=== PATIENT | male | born 1970 | race Two or more races ===

== ENCOUNTER 2017-08-10 11:12 | Inpatient (IN) | payer MEDICAID ==
[~2017-08-10] VITALS: Ht 177.8 cm; Wt 54.4 kg
--- NOTE | 2017-08-10 11:28 | NUR ---
EDA FROM [facility] DISLODGED J- TUBE. J-TUBE STILL NOTED IN THE STOMA-HOWEVER NOT SECURED. NO BLEEDING NOTED. PATIENT'S VSS
[2017-08-10] MEDS ORDERED: CHLO473M5 MM (12:00)
[2017-08-10] MEDS ORDERED: DOCU50LI GT (12:00)
[2017-08-10] MEDS ORDERED: FAMO20TA8 GT (12:00)
[2017-08-10] MEDS ORDERED: ACET650S26 GT ×2 (12:00)
[2017-08-10] MEDS ORDERED: IPRA3AMP IH ×2 (12:00)
[2017-08-10] MEDS ORDERED: HEPARIN SQ (12:00)
[2017-08-10] MEDS ORDERED: ACET-2605 GT (12:00)
[2017-08-10] MEDS ORDERED: HYDR-552 GT (12:00)
[2017-08-10] MEDS ORDERED: ACID1TAB12 GT (12:00)
[2017-08-10] MEDS ORDERED: LACT-96 GT (12:00)
[2017-08-10] MEDS ORDERED: MAGN400O6 GT (12:04)
[2017-08-10] MEDS ORDERED: NA P133E RC (12:04)
[2017-08-10] MEDS ORDERED: BISA10SU8 RC (12:04)
--- NOTE | 2017-08-10 12:16 | NUR ---
TRISTON PAGED, FLEET OPERATIONS MANAGER, TRANSFERRED CALL TO
[2017-08-10 12:22] LABS: BASOPHILS % (AUTO) 0.2 % (0.0-2.0); EOSINOPHILS # (AUTO) 0.4 /CMM (0.0-0.7); EOSINOPHILS % (AUTO) 3.1 % (0.0-6.0); HEMATOCRIT 42 % (39-51); HEMOGLOBIN 14.5 g/dL (13.5-17.5); LYMPHOCYTES # (AUTO) 1.7 /CMM (0.8-4.8); LYMPHOCYTES % (AUTO) 12.1 % (20.0-44.0); MEAN CORPUSCULAR HEMOGLOBIN 30 PG (26.0-33.0); MEAN CORPUSCULAR HGB CONC 34 g/dl (31.0-36.0); MEAN CORPUSCULAR VOLUME 88 fL (80-96); MONOCYTES # (AUTO) 0.7 /CMM (0.1-1.30); MONOCYTES % (AUTO) 5.3 % (2.0-12.0); NEUTROPHILS % (AUTO) 79.3 % (43.0-81.0); PLATELET COUNT (AUTO) 197 /CMM (150-450); RDW COEFFICIENT OF VARIATION 13.8 (11.5-15.0); RED BLOOD CELL COUNT(AUTO) 4.83 MIL/uL (4.5-6.0); WHITE BLOOD COUNT (AUTO) 13.8 K/uL (4.3-11.0)
[2017-08-10] MEDS ORDERED: Z GUARD REMEDY 2 OZ OINT TP PRN (12:30)
--- NOTE | 2017-08-10 12:32 | NUR ---
MS 311-2, LILIANA
[2017-08-10 12:41] LABS: INR 1.04 (0.87-1.13)
[2017-08-10 12:47] LABS: CALCIUM, SERUM 10.2 mg/dL (8.5-10.1); CREATININE 0.8 mg/dL (0.6-1.3); POTASSIUM 4.2 mmol/L (3.5-5.1)
--- NOTE | 2017-08-10 12:51 | NUR ---
PATIENT TRANSPORTED TO [facility]. S
--- NOTE | 2017-08-10 14:00 | NUR ---
ms rn received a 46 year ol male, non verbal w/ trach connected to aerosol, saturating 99%, came in w/ dx of jt malfunction, no distress noted, will be seen by surgical doctor lul.
[2017-08-10] MEDS ORDERED: HYDROCODONE/APAP 5/325MG 1 EACH TABLET GT PRN (15:00)
[2017-08-10] MEDS ORDERED: BISACODYL SUPP (10 MG) 10 MG/SUPP.RECT SUPP.RECT RC PRN (15:00)
[2017-08-10] MEDS ORDERED: ACETAMINOPHEN 650 MG/20.3 ML UDC GT PRN (15:00)
[2017-08-10] MEDS ORDERED: MAGNESIUM HYDROXIDE 30 ML UDC GT PRN (15:00)
[2017-08-10] MEDS ORDERED: NA PHOS,M-B/NA PHOS,DI-BA 1 EA ENEMA RC PRN (15:00)
[2017-08-10] MEDS ORDERED: FIBERSOURCE HN 1,000 ML BOTTLE GT PRN (15:00)
--- NOTE | 2017-08-10 15:00 | NUR ---
ms rn was seen by dr. dottie shay/ orders made and carried out.
[2017-08-10] MEDS ORDERED: FEE PK DOSING 1 MIN EA MC ONE (15:34)
[2017-08-10] MEDS ORDERED: IPRATROPIUM NEB FS 0.5 MG/2.5 ML AMPUL.NEB NEB PRN (16:30)
[2017-08-10] MEDS: DOCUSATE SODIUM LIQ 100 MG/10 ML UDC GT SCH (17:00)
[2017-08-10] MEDS: ACETAMINOPHEN 650 MG/20.3 ML UDC GT SCH (17:00)
[2017-08-10] MEDS: FAMOTIDINE (20 MG) 20 MG TABLET GT SCH (17:00)
--- NOTE | 2017-08-10 17:30 | NUR ---
PT RECEIVED TRACHED ON COOL AEROSOL, IN STABLE CONDITION. V/S WITHIN NORMAL LIMITS WILL MONITOR CLOSELY
--- NOTE | 2017-08-10 18:00 | NUR ---
ms rn called rx to send atv iv, they will put in the dummy.
[2017-08-10] MEDS: PIPERACILLIN /TAZOBACTAM 3.375 G in IV D5W 50 ML IV SCH ×2 (18:12→23:33)
--- NOTE | 2017-08-10 18:45 | NUR ---
ms rn parker quiroz saw patient w/ orders made and carried out, will have kub w/ gastrografine tonight.
[2017-08-10] MEDS: VANCOMYCIN 0.75 GM in IV D5W 250 ML IV SCH (19:29)
[2017-08-10] MEDS ORDERED: ALBUTEROL FS 2.5 MG/3 ML VIAL.NEB NEB PRN (19:30)
--- NOTE | 2017-08-10 19:30 | NUR ---
RN OPENING NOTES PATIENT IS IN BED, NON VERBAL, WITH TRACH CONNECTED TO AEROSOL. VS STABLE. RESPIRATIONS EVEN AND UNLABORED. NO SOB NOTED. NO PAIN OR DISCOMFORT NOTED AT THIS TIME. IV ACCESS ON RIGHT HAND 20 G PATENT AND INTACT, INFUSING D5 1/2 NS AT 75 ML/HR. BED IN LOW AND LOCKED POSITION, SIDE RAILS X2. CALL LIGHT WITHIN EASY REACH. WILL CONTINUE TO MONITOR AND ASSESS DURING THE SHIFT.
[2017-08-10 20:00] VITALS: BP 92/68
[2017-08-10] MEDS: IPRATROPIUM NEB FS 0.5 MG/2.5 ML AMPUL.NEB NEB SCH (20:02)
[2017-08-10] MEDS: ALBUTEROL FS 2.5 MG/3 ML VIAL.NEB NEB SCH (20:02)
[2017-08-10] MEDS ORDERED: DIATR MEGLU/DIATRIZOATE SODIUM 30 ML BOTTLE (GASTROGRAPHIN) ONE (21:05)
[2017-08-10] MEDS: CHLORHEXIDINE GLUCONATE 15 ML UDC MM SCH (22:13)
[2017-08-10] MEDS: HEPARIN SODIUM, PORCINE 5000 UNITS/1 ML VIAL SQ SCH (22:14)
[2017-08-11] MEDS: VANCOMYCIN 0.75 GM in IV D5W 250 ML IV SCH ×3 (00:20→16:00)
[2017-08-11] MEDS: ALBUTEROL FS 2.5 MG/3 ML VIAL.NEB NEB SCH ×4 (01:31→21:00)
[2017-08-11] MEDS: IPRATROPIUM NEB FS 0.5 MG/2.5 ML AMPUL.NEB NEB SCH ×4 (01:31→21:00)
[2017-08-11] MEDS: PIPERACILLIN /TAZOBACTAM 3.375 G in IV D5W 50 ML IV SCH ×3 (05:19→17:08)
[2017-08-11 07:00] LABS: BASOPHILS % (AUTO) 0.3 % (0.0-2.0); EOSINOPHILS # (AUTO) 0.2 /CMM (0.0-0.7); EOSINOPHILS % (AUTO) 1.8 % (0.0-6.0); HEMATOCRIT 42 % (39-51); HEMOGLOBIN 14.6 g/dL (13.5-17.5); LYMPHOCYTES # (AUTO) 1.5 /CMM (0.8-4.8); LYMPHOCYTES % (AUTO) 11.3 % (20.0-44.0); MEAN CORPUSCULAR HEMOGLOBIN 31 PG (26.0-33.0); MEAN CORPUSCULAR HGB CONC 35 g/dl (31.0-36.0); MEAN CORPUSCULAR VOLUME 88 fL (80-96); MONOCYTES # (AUTO) 0.8 /CMM (0.1-1.30); MONOCYTES % (AUTO) 6.2 % (2.0-12.0); NEUTROPHILS # (AUTO) 10.6 /CMM (1.8-8.9); NEUTROPHILS % (AUTO) 80.4 % (43.0-81.0); PLATELET COUNT (AUTO) 174 /CMM (150-450); RDW COEFFICIENT OF VARIATION 13.3 (11.5-15.0); RED BLOOD CELL COUNT(AUTO) 4.75 MIL/uL (4.5-6.0); WHITE BLOOD COUNT (AUTO) 13.2 K/uL (4.3-11.0)
--- NOTE | 2017-08-11 07:12 | NUR ---
MS RN OPENING NOTES RECEIVED PT FROM NIGHTSHIFT NURSE IN STABLE CONDITION. PT IS NONVERBAL AND OPENS EYES SPONTANEOUSLY. NO SOB OR SIGNS OF DISTRESS NOTED. BREATHING IS EVEN AND UNLABORED. PT IS TRACH DEPENDENT ON COOL AEROSOL. IV NOTED TO BE PATENT AND INTACT. NO REDNESS OR SIGNS OF INFILTRATION NOTED. JTUBE PLACEMENT VERIFIED BY ABDOMINAL XRAY. WILL ALERT MD TO BEGIN FEEDING AND MEDICATION ADMINISTRATION. BED IN LOW LOCKED POSITION, SIDE RAILS UP X3, CALL LIGHT WITHIN REACH, BED ALARM ON. WILL CONTINUE TO MONITOR
--- NOTE | 2017-08-11 07:30 | NUR ---
RN CLOSING NOTES PATIENT IS IN BED, NON VERBAL, WITH TRACH CONNECTED TO AEROSOL. VS STABLE. RESPIRATIONS EVEN AND UNLABORED. NO SOB NOTED. NO PAIN OR DISCOMFORT NOTED AT THIS TIME. IV ACCESS ON RIGHT HAND 20 G PATENT AND INTACT, INFUSING D5 1/2 NS AT 75 ML/HR. ALL MEDS ARE DONE AND MEDICATIONS GIVEN PER MD ORDER. BED IN LOW AND LOCKED POSITION, SIDE RAILS X2. CALL LIGHT WITHIN EASY REACH. WILL ENDORSE TO RN DAY SHIFT FOR ERICA.
[2017-08-11 08:00] VITALS: BP 111/70
[2017-08-11] MEDS: HEPARIN SODIUM, PORCINE 5000 UNITS/1 ML VIAL SQ SCH ×2 (09:00→20:53)
--- NOTE | 2017-08-11 09:04 | NUR ---
MS RN NOTES ADRIANO THE ROAD GRADER OPERATOR WAS NOTIFIED OF ABDOMINAL XRAY RESULTS. SHE GAVE ORDERS TO RESUME MEDS [employer] and ORDER DIETARY CONSULT. WILL CARRY OUT ORDERS
[2017-08-11] MEDS: ACETAMINOPHEN 650 MG/20.3 ML UDC GT SCH ×2 (09:53→17:08)
[2017-08-11] MEDS: CHLORHEXIDINE GLUCONATE 15 ML UDC MM SCH ×2 (09:53→20:52)
[2017-08-11] MEDS: DOCUSATE SODIUM LIQ 100 MG/10 ML UDC GT SCH ×2 (09:53→17:08)
[2017-08-11] MEDS: ACIDOPHILUS/BULGARICUS 1 EACH TAB.CHEW GT SCH (09:54)
[2017-08-11] MEDS: FAMOTIDINE (20 MG) 20 MG TABLET GT SCH ×2 (09:54→17:09)
[2017-08-11 10:28] LABS: CALCIUM, SERUM 10.1 mg/dL (8.5-10.1); CREATININE 0.8 mg/dL (0.6-1.3); MAGNESIUM 2.1 mg/dL (1.8-2.4); PHOSPHORUS 5.3 mg/dL (2.5-4.9); POTASSIUM 4.5 mmol/L (3.5-5.1)
--- NOTE | 2017-08-11 10:40 | NUR ---
MS RN NOTES 0900 HEPARIN HELD PER ADRIANO'S (MECHANICAL SYSTEM TECHNICIAN) ORDER PT'S JTUBE WILL BE SUTURED IN PLACE LATER TODAY
--- NOTE | 2017-08-11 13:53 | NUR ---
MS RN NOTES PTS FATHER WAS CALLED IN REGARDS TO CONSENT FOR PEG PLACEMENT. TELEPHONE CONSENT WAS PROVIDED/APPROVED AND VERIFIED WITH CHARGE NURSE.
[2017-08-11 16:00] VITALS: BP 114/71
--- NOTE | 2017-08-11 16:57 | NUR ---
MS RN NOTES PT'S VANCO IS 22. PHARMACY NOTIFIED AND ORDERED THAT I HOLD 1600 VANCO.
--- NOTE | 2017-08-11 18:05 | NUR ---
MS RN CLOSING NOTES PT REMAINS IN STABLE CONDITION. ALL NEEDS WERE MET DURING SHIFT AND ORDERS CARRIED OUT ACCORDINGLY. ALL DUE MEDS GIVEN. PT WAS KEPT CLEAN AND DRY THROUGHOUT SHIFT. REPOSITIONING DONE PER PROTOCOL. JTUBE REMAIN IN PLACE AND PATENT. SAFETY MEASURES REMAIN IN PLACE. WILL ENDORSE TO NIGHTSHIFT NURSE FOR ERICA
--- NOTE | 2017-08-11 19:30 | NUR ---
MS RN OPENING NOTES RECEIVED PT IN BED, NONVERBAL, EYES OPEN, NO APPARENT DISTRESS NOTED. ON COOL AEROSOL, TRACH PATENT, RESPIRATIONS EVEN, UNLABORED, NO SOB NOTED. IV SITE RT WRIST, INTACT, PATENT.NO S/SX OF PAIN OR DISCOMFORT NOTED. BED LOCKED IN LOWEST POSITION. KEPT CLEAN AND COMFORTABLE, ATTENDED ALL NEEDS. WILL CONTINUE TO MONITOR ACCORDINGLY.
[2017-08-11 20:00] VITALS: BP 93/59
--- NOTE | 2017-08-11 20:00 | NUR ---
MS RN NOTES CALLED PHARMACY, SPOKE WITH PHARMACIST SEELA REGARDING ADMINISTRATION OF VANCOMYCIN. STATED THAT IS OK TO ADMINISTER THE DOSE 0.75G ORDER CHANGED TO Q12H AND CONTINUE TO MONITOR PT.
[2017-08-11] MEDS: VANCOMYCIN 0.75 GM in IV NS 0.9% 250 ML IV SCH (20:52)
[2017-08-11 22:00] VITALS: BP 112/60
[2017-08-12] MEDS: PIPERACILLIN /TAZOBACTAM 3.375 G in IV D5W 50 ML IV SCH ×3 (00:08→11:06)
[2017-08-12] MEDS: IV D5/0.45 NACL 1,000 ML IV PRN ×2 (00:09→17:06)
[2017-08-12] MEDS: IPRATROPIUM NEB FS 0.5 MG/2.5 ML AMPUL.NEB NEB SCH ×4 (01:28→19:19)
[2017-08-12] MEDS: ALBUTEROL FS 2.5 MG/3 ML VIAL.NEB NEB SCH ×4 (01:28→19:19)
--- NOTE | 2017-08-12 06:51 | NUR ---
MS RN CLOSING NOTES PT IN BED, ON COOL AEROSOL, RESPIRATIONS EVEN, UNLABORED. TRACH PATENT, NO RESP DISTRESS NOTED.NO S/SX OF PAIN OR DISCOMFORT NOTED. KEPT CLEAN AND COMFORTABLE, BED LOCKED IN LOWEST POSITION. ATTENDED ALL NEEDS WILL CONTINUE TO MONITOR ACCORDINGLY.
--- NOTE | 2017-08-12 07:10 | NUR ---
RN NOTES PT IS LAYING DOWN IN BED, AWAKE. PT ON 8L VIA TRACH, RESPIRATIONS ARE EVEN AND UNLABORED. IV ON R WRIST, INTACT AND RUNNING D51/2 NS @ 75 ML/HR. GTBUE IS INTACT AND CLAMPED. SAFETY MEASURES ARE IN PLACE, CALL LIGHT IS IN REACH. WILL CONTINUE TO MONITOR.
[2017-08-12 07:31] LABS: CALCIUM, SERUM 9.6 mg/dL (8.5-10.1); CREATININE 0.8 mg/dL (0.6-1.3); POTASSIUM 3.8 mmol/L (3.5-5.1)
[2017-08-12] MEDS: VANCOMYCIN 0.75 GM in IV NS 0.9% 250 ML IV SCH ×2 (07:51→20:04)
[2017-08-12 08:00] VITALS: BP 99/69
[2017-08-12] MEDS: ACETAMINOPHEN 650 MG/20.3 ML UDC GT SCH ×2 (08:12→16:02)
[2017-08-12] MEDS: DOCUSATE SODIUM LIQ 100 MG/10 ML UDC GT SCH ×2 (08:12→16:02)
[2017-08-12] MEDS: CHLORHEXIDINE GLUCONATE 15 ML UDC MM SCH ×2 (08:12→21:48)
[2017-08-12] MEDS: FAMOTIDINE (20 MG) 20 MG TABLET GT SCH ×2 (08:12→16:02)
[2017-08-12] MEDS: ACIDOPHILUS/BULGARICUS 1 EACH TAB.CHEW GT SCH (08:12)
[2017-08-12] MEDS: HEPARIN SODIUM, PORCINE 5000 UNITS/1 ML VIAL SQ SCH ×2 (08:13→21:49)
[2017-08-12 09:34] LABS: BASOPHILS % (AUTO) 0.3 % (0.0-2.0); EOSINOPHILS # (AUTO) 0.4 /CMM (0.0-0.7); HEMATOCRIT 41 % (39-51); LYMPHOCYTES # (AUTO) 1.5 /CMM (0.8-4.8); LYMPHOCYTES % (AUTO) 17.1 % (20.0-44.0); MEAN CORPUSCULAR HEMOGLOBIN 30 PG (26.0-33.0); MEAN CORPUSCULAR HGB CONC 35 g/dl (31.0-36.0); MEAN CORPUSCULAR VOLUME 88 fL (80-96); MONOCYTES # (AUTO) 0.5 /CMM (0.1-1.30); MONOCYTES % (AUTO) 5.5 % (2.0-12.0); NEUTROPHILS # (AUTO) 6.3 /CMM (1.8-8.9); NEUTROPHILS % (AUTO) 72.1 % (43.0-81.0); PLATELET COUNT (AUTO) 186 /CMM (150-450); RDW COEFFICIENT OF VARIATION 13.9 (11.5-15.0); RED BLOOD CELL COUNT(AUTO) 4.61 MIL/uL (4.5-6.0); WHITE BLOOD COUNT (AUTO) 8.8 K/uL (4.3-11.0)
[2017-08-12 16:00] VITALS: BP 93/62
[2017-08-12] MEDS ORDERED: FIBERSOURCE HN 1,000 ML BOTTLE GT PRN (17:30)
--- NOTE | 2017-08-12 18:42 | NUR ---
RN NOTES PT IS LAYING DOWN IN BED, NO SIGS OF DISTRESS NOTED. PT IS NON VERBAL, OPENS EYES TO NAME AND TOUCH. PT CONNECTED TO 8L O2 COOL AEROSOL, RESPIRATIONS ARE EVEN AND UNLABORED. IV ON R WRIST INTACT AND RUNNING D5 1/2 NS @ 75ML/HR. ALL MEDS WERE GIVEN ORDERED AND SKIN CARE PROVIDED FOR PT. G-TUBE IS INTACT AND CLAMPED. SAFETY MEASURES ARE IN PLACE, CALL LIGHT IS IN REACH. WILL ENDORSE TO MARKETING PROFESSIONAL RN FOR CONTINUITY OF CARE.
--- NOTE | 2017-08-12 19:39 | NUR ---
MS RN OPENING NOTES RECEIVED PT IN BED AWAKE, ON COOL AEROSOL FIO2 35%, RESPIRATIONS EVEN, UNLABORED, NO APPARENT DISTRESS NOTED. TRACH PATENT, NO SOB NOTED. JT IN PLACE. IV SITE RT WRIST INTACT, PATENT. NO S/SX OF PAIN OR DISCOMFORT NOTED. KEPT CLEAN AND COMFORTABLE, ATTENDED ALL NEEDS.WILL CONTINUE TO MONITOR ACCORDINGLY.
[2017-08-12 20:00] VITALS: BP 111/69
[2017-08-12] MEDS: AMOX/CLAVULANATE 875 MG TABLET GT SCH (21:48)
[2017-08-12 22:00] VITALS: BP 111/68
[2017-08-13] MEDS: IPRATROPIUM NEB FS 0.5 MG/2.5 ML AMPUL.NEB NEB SCH ×3 (01:23→13:44)
[2017-08-13] MEDS: ALBUTEROL FS 2.5 MG/3 ML VIAL.NEB NEB SCH ×3 (01:23→13:44)
--- NOTE | 2017-08-13 06:40 | NUR ---
MS RN CLOSING NOTES PT IN BED RESTING COMFORTABLY, TRACH PATENT, NO RESP DISTRESS NOTED. JT IN PLACE 3ML RESIDUAL NOTED, TOLERATES FEEDING WELL FIBERSOURCE AT 65ML/HR. IV SITE INTACT, PATENT. TRACH CARE DONE. KEPT CLEAN AND COMFORTABLE, ATTENDED ALL NEEDS.WILL ENDORSE TO THE DAY SHIFT FOR CONTINUITY OF CARE
--- NOTE | 2017-08-13 07:10 | NUR ---
RN NOTES PT IS LAYING DOWN IN BED, AWAKE. PT ON 8L O2 CONNECTED BY TRACH, RESPIRATIONS ARE EVEN AND UNLABORED. IV ON R WRIST, INTACT AND RUNNING D5 1/2 NS @ 75ML/HR. G-TUBE IS INTACT AND RUNNING FIBERSOURCE @ 65ML/HR. SAFETY MEASURES ARE IN PLACE, CALL LIGHT IS IN REACH. WILL CONTINUE TO MONITOR.
[2017-08-13 07:12] LABS: BASOPHILS % (AUTO) 0.2 % (0.0-2.0); EOSINOPHILS # (AUTO) 0.4 /CMM (0.0-0.7); EOSINOPHILS % (AUTO) 4.3 % (0.0-6.0); HEMATOCRIT 39 % (39-51); HEMOGLOBIN 13.6 g/dL (13.5-17.5); LYMPHOCYTES # (AUTO) 1.4 /CMM (0.8-4.8); LYMPHOCYTES % (AUTO) 15.4 % (20.0-44.0); MEAN CORPUSCULAR HEMOGLOBIN 31 PG (26.0-33.0); MEAN CORPUSCULAR HGB CONC 35 g/dl (31.0-36.0); MEAN CORPUSCULAR VOLUME 88 fL (80-96); MONOCYTES # (AUTO) 0.5 /CMM (0.1-1.30); NEUTROPHILS # (AUTO) 6.8 /CMM (1.8-8.9); NEUTROPHILS % (AUTO) 75.1 % (43.0-81.0); PLATELET COUNT (AUTO) 188 /CMM (150-450); RDW COEFFICIENT OF VARIATION 13.7 (11.5-15.0); RED BLOOD CELL COUNT(AUTO) 4.44 MIL/uL (4.5-6.0)
[2017-08-13 07:26] LABS: CALCIUM, SERUM 9.1 mg/dL (8.5-10.1); CREATININE 0.6 mg/dL (0.6-1.3); POTASSIUM 3.7 mmol/L (3.5-5.1)
[2017-08-13 08:00] VITALS: BP 109/67
[2017-08-13] MEDS: DOCUSATE SODIUM LIQ 100 MG/10 ML UDC GT SCH ×2 (08:14→16:12)
[2017-08-13] MEDS: FAMOTIDINE (20 MG) 20 MG TABLET GT SCH ×2 (08:14→16:12)
[2017-08-13] MEDS: ACIDOPHILUS/BULGARICUS 1 EACH TAB.CHEW GT SCH (08:14)
[2017-08-13] MEDS: AMOX/CLAVULANATE 875 MG TABLET GT SCH (08:14)
[2017-08-13] MEDS: VANCOMYCIN 0.75 GM in IV NS 0.9% 250 ML IV SCH (08:14)
[2017-08-13] MEDS: CHLORHEXIDINE GLUCONATE 15 ML UDC MM SCH (08:14)
[2017-08-13] MEDS: ACETAMINOPHEN 650 MG/20.3 ML UDC GT SCH ×2 (08:16→16:12)
[2017-08-13] MEDS: HEPARIN SODIUM, PORCINE 5000 UNITS/1 ML VIAL SQ SCH (08:20)
[2017-08-13] MEDS ORDERED: Amox/Clavulanate GT (15:03)
[2017-08-13 16:00] VITALS: BP 101/73
--- NOTE | 2017-08-13 18:28 | NUR ---
RN NOTES PT IS LAYING DOWN IN BED, AWAKE, NO SIGNS OF DISTRESS NOTED. PT ON 8L O2 VIA TRACH COLLAR, RESPIRATIONS ARE EVEN AND UNLABORED. IV ON R WRIST INTACT AND SL. G-TUBE IS INTACT, FLUSHED AND CLAMPED. ALL MEDS WERE GIVEN ORDERED AND PT NEEDS MET. PICTURES WERE TAKEN PRIOR TO DISCHARGE AND REPORT WAS GIVEN TO ITZ AT [facility]. WAITING FOR CORPORATE TREASURY ANALYST FOR TRANSPORT TO FACILITY. WILL ENDORSE TO SUPERVISOR COMMISSARY PRODUCTION RN FOR ERICA.
--- NOTE | 2017-08-13 18:50 | NUR ---
RN NOTES PT WAS DISCHARGED TO [facility] IN STABLE CONDITION, TRANSPORTED BY AMBULANCE. IV WAS REMOVED AND DISCHARGE PAPERS WERE BROUGHT WITH PT. PICTURES TAKEN FOR DISCHARGE.
== END 2017-08-13 19:00 | DRG 252 ==
LOC: ER 11:20 → MED 12:38
PROVIDERS: ADMIT Internal Medicine; ATTEND Internal Medicine
PROC: 0D20XUZ Change Feeding Device in Upper Intestinal Tract, External Approach (ICD-10-PCS; principal; 2017-08-10)
DX: K94.29 Other complications of gastrostomy (principal); J69.0 Pneumonitis due to inhalation of food and vomit; G93.40 Encephalopathy, unspecified; J96.11 Chronic respiratory failure with hypoxia; R53.2 Functional quadriplegia; K31.6 Fistula of stomach and duodenum; Z93.0 Tracheostomy status; E87.2 Acidosis; Y84.9 Medical procedure, unspecified as the cause of abnormal reaction of the patient, or of later complication, without mention of misadventure at the time of the procedure; Y73.8 Miscellaneous gastroenterology and urology devices associated with adverse incidents, not elsewhere classified; Y92.129 Unspecified place in nursing home as the place of occurrence of the external cause; D72.829 Elevated white blood cell count, unspecified; Z87.820 Personal history of traumatic brain injury; E83.52 Hypercalcemia; K21.9 Gastro-esophageal reflux disease without esophagitis; R13.10 Dysphagia, unspecified; E86.0 Dehydration; J04.10 Acute tracheitis without obstruction; B96.89 Other specified bacterial agents as the cause of diseases classified elsewhere
CPT/HCPCS: 31720; 36415; 71045-TC; 74018; 80048-TC; 80202-TC; 83735-TC; 84100-TC; 85025-TC; 85730-TC; 87040-TC; 87070-TC; 87081-TC; 87086-TC; 94640-TC; A4606; A4623; A6402; J1644; J2543; J3370; J3490; J7050; J7060; Q9963; Z7610

== ENCOUNTER 2017-09-12 13:47 | Inpatient (IN) | payer MEDICAID ==
[~2017-09-12] VITALS: Ht 170.2 cm; Wt 72.6 kg
[~2017-09-12 13:47] MED LIST: ACET-2605 GT; ACET650S26 GT; ACID1TAB12 GT; Amox/Clavulanate GT; BISA10SU8 RC; CHLO473M5 MM; DOCU50LI GT; FAMO20TA8 GT; HEPARIN SQ; HYDR-552 GT; IPRA3AMP IH; LACT-96 GT; MAGN400O6 GT; NA P133E RC
[2017-09-12 15:30] LABS: BASOPHILS # (AUTO) 0.4 /CMM (0.0-0.2); BASOPHILS % (AUTO) 3.2 % (0.0-2.0); EOSINOPHILS # (AUTO) 0.5 /CMM (0.0-0.7); EOSINOPHILS % (AUTO) 4.1 % (0.0-6.0); HEMATOCRIT 42 % (39-51); HEMOGLOBIN 14.1 g/dL (13.5-17.5); LYMPHOCYTES # (AUTO) 2.7 /CMM (0.8-4.8); LYMPHOCYTES % (AUTO) 23.8 % (20.0-44.0); MEAN CORPUSCULAR HEMOGLOBIN 29 PG (26.0-33.0); MEAN CORPUSCULAR HGB CONC 34 g/dl (31.0-36.0); MEAN CORPUSCULAR VOLUME 87 fL (80-96); MONOCYTES # (AUTO) 0.6 /CMM (0.1-1.30); MONOCYTES % (AUTO) 5.5 % (2.0-12.0); NEUTROPHILS # (AUTO) 7.3 /CMM (1.8-8.9); NEUTROPHILS % (AUTO) 63.4 % (43.0-81.0); PLATELET COUNT (AUTO) 230 /CMM (150-450); RDW COEFFICIENT OF VARIATION 13.3 (11.5-15.0); RED BLOOD CELL COUNT(AUTO) 4.83 MIL/uL (4.5-6.0); WHITE BLOOD COUNT (AUTO) 11.5 K/uL (4.3-11.0)
[2017-09-12 16:03] LABS: CREATININE 0.6 mg/dL (0.6-1.3); POTASSIUM 3.8 mmol/L (3.5-5.1)
[2017-09-12 16:08] LABS: ALBUMIN 3.7 g/dL (3.4-5.0); BILIRUBIN,DIRECT 0.2 mg/dL (0.0-0.2); BILIRUBIN,TOTAL 0.7 mg/dL (0.2-1.0); TOTAL PROTEIN, SERUM 8.9 g/dL (6.4-8.2)
[2017-09-12] MEDS ORDERED: MULT-213 GT (16:26)
[2017-09-12] MEDS ORDERED: HEPA50008 SQ (16:26)
[2017-09-12] MEDS ORDERED: ASCO500T9 GT (16:26)
[2017-09-12] MEDS ORDERED: ZINC220T GT (16:26)
[2017-09-12] MEDS ORDERED: DIATR MEGLU/DIATRIZOATE SODIUM 30 ML BOTTLE (GASTROGRAPHIN) ONE (17:12)
[2017-09-12 18:30] VITALS: BP 104/79
[2017-09-12] MEDS ORDERED: ACETAMINOPHEN 325 MG TABLET PO PRN (19:30)
[2017-09-12] MEDS ORDERED: ONDANSETRON HCL/PF 4 MG/2 ML VIAL IVP PRN (19:30)
[2017-09-12] MEDS ORDERED: Z GUARD REMEDY 2 OZ OINT TP PRN (19:30)
[2017-09-12] MEDS ORDERED: MORPHINE SULFATE INJ 2 MG/ML DISP.SYRIN IV PRN (19:30)
[2017-09-12 20:00] VITALS: BP 90/66
[2017-09-12] MEDS: Potassium Chloride 10 MEQ in IV D5/0.45 NACL 1,000 ML IV PRN (20:11)
[2017-09-12] MEDS: HEPARIN SODIUM, PORCINE 5000 UNITS/1 ML VIAL SQ SCH (21:39)
[2017-09-13] VITALS: BP 95/69
[2017-09-13 04:00] VITALS: BP 94/65
[2017-09-13 07:52] LABS: BASOPHILS % (AUTO) 0.4 % (0.0-2.0); EOSINOPHILS # (AUTO) 0.3 /CMM (0.0-0.7); HEMATOCRIT 39 % (39-51); HEMOGLOBIN 13.7 g/dL (13.5-17.5); LYMPHOCYTES # (AUTO) 2.3 /CMM (0.8-4.8); LYMPHOCYTES % (AUTO) 20.4 % (20.0-44.0); MEAN CORPUSCULAR HEMOGLOBIN 31 PG (26.0-33.0); MEAN CORPUSCULAR HGB CONC 35 g/dl (31.0-36.0); MEAN CORPUSCULAR VOLUME 88 fL (80-96); MONOCYTES # (AUTO) 0.7 /CMM (0.1-1.30); NEUTROPHILS # (AUTO) 7.8 /CMM (1.8-8.9); NEUTROPHILS % (AUTO) 70.2 % (43.0-81.0); PLATELET COUNT (AUTO) 199 /CMM (150-450); RDW COEFFICIENT OF VARIATION 14.1 (11.5-15.0); RED BLOOD CELL COUNT(AUTO) 4.46 MIL/uL (4.5-6.0); WHITE BLOOD COUNT (AUTO) 11.1 K/uL (4.3-11.0)
[2017-09-13 08:00] VITALS: BP 91/65
[2017-09-13] MEDS: Potassium Chloride 10 MEQ in IV D5/0.45 NACL 1,000 ML IV PRN (08:02)
[2017-09-13] MEDS: HEPARIN SODIUM, PORCINE 5000 UNITS/1 ML VIAL SQ SCH (08:04)
[2017-09-13 08:07] LABS: ALBUMIN 3.6 g/dL (3.4-5.0); BILIRUBIN,TOTAL 0.6 mg/dL (0.2-1.0); CALCIUM, SERUM 9.4 mg/dL (8.5-10.1); CREATININE 0.6 mg/dL (0.6-1.3); MAGNESIUM 1.7 mg/dL (1.8-2.4); POTASSIUM 4.2 mmol/L (3.5-5.1); TOTAL PROTEIN, SERUM 8.4 g/dL (6.4-8.2)
[2017-09-13] MEDS: Magnesium 1GM/D5W 100ML PREMIX 100 ML IV SCH ×2 (11:55→13:18)
[2017-09-13 12:00] VITALS: BP 110/75
[2017-09-13] MEDS ORDERED: FIBERSOURCE HN 1,000 ML BOTTLE GT PRN (12:30)
[2017-09-13 16:00] VITALS: BP 100/66
== END 2017-09-13 18:18 | DRG 252 ==
LOC: ER 13:47 → TELE1 17:21
PROVIDERS: ADMIT Nurse Practitioner Acute Care; ATTEND Nurse Practitioner Acute Care
PROC: 0DWDXUZ Revision of Feeding Device in Lower Intestinal Tract, External Approach (ICD-10-PCS; principal; 2017-09-12)
DX: K94.13 Enterostomy malfunction (principal); N17.0 Acute kidney failure with tubular necrosis; J96.10 Chronic respiratory failure, unspecified whether with hypoxia or hypercapnia; R53.2 Functional quadriplegia; Z93.0 Tracheostomy status; K21.9 Gastro-esophageal reflux disease without esophagitis; D68.59 Other primary thrombophilia; D72.829 Elevated white blood cell count, unspecified; R13.10 Dysphagia, unspecified; Z87.820 Personal history of traumatic brain injury; R74.8 Abnormal levels of other serum enzymes; Y84.8 Other medical procedures as the cause of abnormal reaction of the patient, or of later complication, without mention of misadventure at the time of the procedure; Y81.8 Miscellaneous general- and plastic-surgery devices associated with adverse incidents, not elsewhere classified; Y92.129 Unspecified place in nursing home as the place of occurrence of the external cause
CPT/HCPCS: 31720; 36415; 74018; 80048-TC; 80053-TC; 80061-TC; 80076-TC; 83690-TC; 83735-TC; 84100-TC; 85025-TC; 87081-TC; 94640-TC; 94762-TC; A4606; J1644; J3475; J3480; J3490; Q9963; Z7610

== ENCOUNTER 2017-10-13 14:18 | Emergency (ER) | payer MEDICAID ==
[~2017-10-13] VITALS: Ht 165.1 cm; Wt 68.0 kg
[~2017-10-13 14:18] MED LIST changes: +ASCO500T9 GT; -Amox/Clavulanate GT; -FAMO20TA8 GT; +HEPA50008 SQ; -HEPARIN SQ; -IPRA3AMP IH; +IPRA3AMP23 IH; +MULT-213 GT; +ZINC220T GT
[2017-10-13 14:38] VITALS: BP 134/74
[2017-10-13] MEDS ORDERED: DIATR MEGLU/DIATRIZOATE SODIUM 30 ML BOTTLE (GASTROGRAPHIN) ONE ×2 (15:46→17:24)
--- NOTE | 2017-10-13 18:11 | NUR ---
CALLED [facility] FOR TRANSPORT ETA OF 1929 WAS GIVEN. TRIP#[id number]
== END 2017-10-13 19:18 ==
LOC: ER 14:20
DX: K94.23 Gastrostomy malfunction (principal); G93.40 Encephalopathy, unspecified; K21.9 Gastro-esophageal reflux disease without esophagitis; Z98.890 Other specified postprocedural states
CPT/HCPCS: 74018; A4606; Q9963; Z7610

== ENCOUNTER 2017-10-17 18:27 | Inpatient (IN) | payer MEDICAID ==
[2017-10-17] MEDS ORDERED: MORPHINE SULFATE INJ 2 MG/ML DISP.SYRIN IV PRN (21:00)
[2017-10-17] MEDS ORDERED: FENTANYL PF 100MCG/2ML AMPUL IV PRN (21:00)
[2017-10-17] MEDS ORDERED: ALBUTEROL FS 2.5 MG/3 ML VIAL.NEB NEB PRN ×2 (21:00→22:00)
[2017-10-17] MEDS ORDERED: IPRATROPIUM NEB FS 0.5 MG/2.5 ML AMPUL.NEB NEB PRN ×2 (21:00→22:00)
[2017-10-17] MEDS ORDERED: Medication Not On Formulary EA (Ipratropium/Albuterol Sulfate (Duoneb 2.5-0.5 Mg/3 Ml So IH PRN (21:00)
[2017-10-17] MEDS ORDERED: BISACODYL SUPP (10 MG) 10 MG/SUPP.RECT SUPP.RECT RC PRN (21:00)
[2017-10-17] MEDS ORDERED: ONDANSETRON HCL/PF 4 MG/2 ML VIAL IVP PRN (21:00)
[2017-10-17] MEDS: CHLORHEXIDINE GLUCONATE 15 ML UDC MM SCH (22:49)
[2017-10-17] MEDS: HEPARIN SODIUM, PORCINE 5000 UNITS/1 ML VIAL SQ SCH (22:50)
[2017-10-17] MEDS: IV D5/ 0.9% NACL 1,000 ML IV PRN (22:51)
[2017-10-18] MEDS: ALBUTEROL FS 2.5 MG/3 ML VIAL.NEB NEB SCH ×4 (01:30→20:23)
[2017-10-18] MEDS: IPRATROPIUM NEB FS 0.5 MG/2.5 ML AMPUL.NEB NEB SCH ×4 (01:30→20:23)
[2017-10-18] MEDS ORDERED: Medication Not On Formulary EA (Ipratropium/Albuterol Sulfate (Duoneb 2.5-0.5 Mg/3 Ml So IH SCH (01:30)
[2017-10-18] MEDS: PANTOPRAZOLE 40 MG VIAL IV SCH (09:00)
[2017-10-18] MEDS: CHLORHEXIDINE GLUCONATE 15 ML UDC MM SCH ×2 (09:02→22:32)
[2017-10-18] MEDS: HEPARIN SODIUM, PORCINE 5000 UNITS/1 ML VIAL SQ SCH ×2 (09:02→22:33)
[2017-10-18] MEDS: IV D5/ 0.9% NACL 1,000 ML IV PRN (09:06)
[2017-10-18] MEDS: Magnesium 1GM/D5W 100ML PREMIX 100 ML IV SCH ×2 (12:07→13:12)
[2017-10-19] MEDS: ALBUTEROL FS 2.5 MG/3 ML VIAL.NEB NEB SCH ×4 (02:12→20:44)
[2017-10-19] MEDS: IPRATROPIUM NEB FS 0.5 MG/2.5 ML AMPUL.NEB NEB SCH ×4 (02:12→20:45)
[2017-10-19] MEDS: CHLORHEXIDINE GLUCONATE 15 ML UDC MM SCH ×2 (08:49→20:36)
[2017-10-19] MEDS: PANTOPRAZOLE 40 MG VIAL IV SCH (08:50)
[2017-10-19] MEDS: HEPARIN SODIUM, PORCINE 5000 UNITS/1 ML VIAL SQ SCH ×2 (08:51→20:37)
[2017-10-19] MEDS: IV D5/ 0.9% NACL 1,000 ML IV PRN ×2 (10:02→21:08)
[2017-10-19] MEDS: Magnesium 1GM/D5W 100ML PREMIX 100 ML IV SCH ×2 (13:54→14:55)
[2017-10-20] MEDS: IPRATROPIUM NEB FS 0.5 MG/2.5 ML AMPUL.NEB NEB SCH ×4 (01:58→19:49)
[2017-10-20] MEDS: ALBUTEROL FS 2.5 MG/3 ML VIAL.NEB NEB SCH ×4 (01:58→19:49)
[2017-10-20] MEDS: CHLORHEXIDINE GLUCONATE 15 ML UDC MM SCH ×2 (09:31→21:50)
[2017-10-20] MEDS: PANTOPRAZOLE 40 MG VIAL IV SCH (09:31)
[2017-10-20] MEDS: HEPARIN SODIUM, PORCINE 5000 UNITS/1 ML VIAL SQ SCH ×2 (09:38→21:51)
[2017-10-20] MEDS ORDERED: Z GUARD REMEDY 2 OZ OINT TP PRN (10:00)
[2017-10-20] MEDS: Z GUARD REMEDY 2 OZ OINT TP SCH (10:00)
[2017-10-20] MEDS: IV D5/ 0.9% NACL 1,000 ML IV PRN (17:41)
[2017-10-21] MEDS ORDERED: JEVITY 1.2 CAL 1,000 ML BOTTLE GT PRN (01:00)
[2017-10-21] MEDS: ALBUTEROL FS 2.5 MG/3 ML VIAL.NEB NEB SCH ×4 (01:34→20:11)
[2017-10-21] MEDS: IPRATROPIUM NEB FS 0.5 MG/2.5 ML AMPUL.NEB NEB SCH ×4 (01:34→20:11)
[2017-10-21] MEDS: PANTOPRAZOLE 40 MG VIAL IV SCH (08:41)
[2017-10-21] MEDS: CHLORHEXIDINE GLUCONATE 15 ML UDC MM SCH ×2 (08:41→21:46)
[2017-10-21] MEDS: HEPARIN SODIUM, PORCINE 5000 UNITS/1 ML VIAL SQ SCH ×2 (08:47→21:46)
[2017-10-21] MEDS: Z GUARD REMEDY 2 OZ OINT TP SCH (08:48)
[2017-10-21] MEDS: Magnesium 1GM/D5W 100ML PREMIX 100 ML IV SCH ×3 (10:42→13:11)
[2017-10-21] MEDS: IV D5/ 0.9% NACL 1,000 ML IV PRN (10:46)
[2017-10-21] MEDS: JEVITY 1.2 CAL 1,000 ML BOTTLE GT PRN (21:58)
[2017-10-22] MEDS: ALBUTEROL FS 2.5 MG/3 ML VIAL.NEB NEB SCH ×4 (01:53→19:54)
[2017-10-22] MEDS: IPRATROPIUM NEB FS 0.5 MG/2.5 ML AMPUL.NEB NEB SCH ×4 (01:53→19:54)
[2017-10-22] MEDS: IV D5/ 0.9% NACL 1,000 ML IV PRN (06:19)
[2017-10-22] MEDS: PANTOPRAZOLE 40 MG VIAL IV SCH (09:39)
[2017-10-22] MEDS: Z GUARD REMEDY 2 OZ OINT TP SCH (09:39)
[2017-10-22] MEDS: CHLORHEXIDINE GLUCONATE 15 ML UDC MM SCH ×2 (09:39→21:38)
[2017-10-22] MEDS: HEPARIN SODIUM, PORCINE 5000 UNITS/1 ML VIAL SQ SCH ×2 (09:40→21:42)
[2017-10-22] MEDS ORDERED: ACETAMINOPHEN 650 MG/SUPP.RECT RC PRN (12:00)
[2017-10-22] MEDS: Magnesium 1GM/D5W 100ML PREMIX 100 ML IV SCH ×2 (12:27→13:35)
[2017-10-22] MEDS ORDERED: NEUTRA PHOS 1 POWD.PACKET NG ONE (14:00)
[2017-10-22] MEDS: JEVITY 1.2 CAL 1,000 ML BOTTLE GT PRN (16:12)
[2017-10-22] MEDS ORDERED: IV NS 0.9% 1,000 ML IV PRN (22:30)
[2017-10-22] MEDS ORDERED: PIPERACILLIN /TAZOBACTAM 3.375 G VIAL IV ONE (22:59)
[2017-10-22] MEDS: PIPERACILLIN /TAZOBACTAM 3.375 G in IV D5W 100 ML IV SCH (23:16)
[2017-10-23] MEDS: IPRATROPIUM NEB FS 0.5 MG/2.5 ML AMPUL.NEB NEB SCH ×4 (01:37→19:56)
[2017-10-23] MEDS: ALBUTEROL FS 2.5 MG/3 ML VIAL.NEB NEB SCH ×4 (01:37→19:56)
[2017-10-23] MEDS ORDERED: PIPERACILLIN /TAZOBACTAM 3.375 G VIAL IV ONE (04:57)
[2017-10-23] MEDS: PIPERACILLIN /TAZOBACTAM 3.375 G in IV D5W 100 ML IV SCH (05:23)
[2017-10-23] MEDS: CHLORHEXIDINE GLUCONATE 15 ML UDC MM SCH ×2 (09:05→21:16)
[2017-10-23] MEDS: PANTOPRAZOLE 40 MG VIAL IV SCH (09:05)
[2017-10-23] MEDS: HEPARIN SODIUM, PORCINE 5000 UNITS/1 ML VIAL SQ SCH ×2 (09:06→21:00)
[2017-10-23] MEDS: Z GUARD REMEDY 2 OZ OINT TP SCH (11:13)
[2017-10-23] MEDS: PIPERACILLIN /TAZOBACTAM 3.375 G in IV D5W 50 ML IV SCH ×2 (12:24→18:15)
[2017-10-24] MEDS: PIPERACILLIN /TAZOBACTAM 3.375 G in IV D5W 50 ML IV SCH ×2 (00:17→05:42)
[2017-10-24] MEDS: IPRATROPIUM NEB FS 0.5 MG/2.5 ML AMPUL.NEB NEB SCH ×4 (01:26→20:09)
[2017-10-24] MEDS: ALBUTEROL FS 2.5 MG/3 ML VIAL.NEB NEB SCH ×4 (01:26→20:09)
[2017-10-24] MEDS: HEPARIN SODIUM, PORCINE 5000 UNITS/1 ML VIAL SQ SCH ×2 (09:00→20:38)
[2017-10-24] MEDS: PANTOPRAZOLE 40 MG VIAL IV SCH (09:00)
[2017-10-24] MEDS: CHLORHEXIDINE GLUCONATE 15 ML UDC MM SCH ×2 (09:00→20:40)
[2017-10-24] MEDS: Z GUARD REMEDY 2 OZ OINT TP SCH (10:31)
[2017-10-24] MEDS: JEVITY 1.2 CAL 1,000 ML BOTTLE GT PRN (12:57)
[2017-10-24] MEDS ORDERED: MEROPENEM 500 MG in IV NS 0.9% 50 ML IV SCH (13:00)
[2017-10-24] MEDS: MEROPENEM 1 G in IV NS 0.9% 100 ML IV SCH ×2 (15:34→22:53)
[2017-10-24] MEDS: Magnesium 1GM/D5W 100ML PREMIX 100 ML IV SCH ×2 (20:39→21:41)
[2017-10-25] MEDS: IPRATROPIUM NEB FS 0.5 MG/2.5 ML AMPUL.NEB NEB SCH ×2 (02:10→08:13)
[2017-10-25] MEDS: ALBUTEROL FS 2.5 MG/3 ML VIAL.NEB NEB SCH ×2 (02:10→08:13)
[2017-10-25] MEDS: MEROPENEM 1 G in IV NS 0.9% 100 ML IV SCH (04:07)
[2017-10-25] MEDS: CHLORHEXIDINE GLUCONATE 15 ML UDC MM SCH (09:36)
[2017-10-25] MEDS: PANTOPRAZOLE 40 MG VIAL IV SCH (09:36)
[2017-10-25] MEDS: Z GUARD REMEDY 2 OZ OINT TP SCH (09:37)
[2017-10-25] MEDS ORDERED: MERO1VIA IV (09:52)
== END 2017-10-25 13:48 | DRG 720 ==
DX: A41.9 Sepsis, unspecified organism (principal); Z99.11 Dependence on respirator [ventilator] status; J15.6 Pneumonia due to other Gram-negative bacteria; J96.11 Chronic respiratory failure with hypoxia; R53.2 Functional quadriplegia; Z93.0 Tracheostomy status; K94.23 Gastrostomy malfunction; Y83.3 Surgical operation with formation of external stoma as the cause of abnormal reaction of the patient, or of later complication, without mention of misadventure at the time of the procedure; Y82.9 Unspecified medical devices associated with adverse incidents; Y92.129 Unspecified place in nursing home as the place of occurrence of the external cause; K21.9 Gastro-esophageal reflux disease without esophagitis; R13.10 Dysphagia, unspecified; Z87.820 Personal history of traumatic brain injury; D64.9 Anemia, unspecified; R74.0 Nonspecific elevation of levels of transaminase and lactic acid dehydrogenase [LDH]; Z87.01 Personal history of pneumonia (recurrent)